=== PATIENT | female | born 1935 | race Caucasian/White ===

== ENCOUNTER 2025-01-14 18:04 | Observation (INO) | payer MEDICARE, OTHER ==
--- NOTE | 2025-01-14 18:51 | CT ---
EXAMINATION TYPE: CT brain cspine wo con DATE OF EXAM: 01/14/2025 6:27 PM COMPARISON: None. CLINICAL INDICATION: Female, 89 years old with history of Trauma; CODE COAG- fall from [address] airs, +thinners., pain TECHNIQUE: Brain: Multiple axial CT images of the brain were obtained without IV contrast. Cspine: Axial CT images from the skull base to the inferior aspect of T2 we obtained without intraven ous contrast. Coronal and sagittal reformatted images were also reviewed. . CT DLP: 1352.4 mGycm, Automated exposure control for dose reduction was used. FINDINGS: Brain: Extra-axial spaces: No abnormal extra-axial fluid collections. Ventricular system: Dilatation in proportion to cerebral atrophy. Cerebral parenchyma: Cerebral atrophy. No acute intraparenchymal hemorrhage or mass effect. The bar -white junction is well differentiated. Scattered hypoattenuating areas are seen within the white mat ter. Cerebellum: Unremarkable. Mass effect: No evidence of midline shift. Intracranial vasculature: Atherosclerotic calcifications of the intracranial vessels. Soft tissues: Normal. Calvarium/osseous structures: No depressed skull fracture. Paranasal sinuses and mastoid air cells: Mild scattered mucosal thickening and or secretions. Visualized orbits: Bilateral aphakia Cervical spine: Fracture: None. Osseous structures: Multilevel degenerative disc disease changes with endplate spurring and disc oste ophyte complex's. Vertebral alignment: Within normal limits. Spinal canal/Neural Foramina: Disc osteophyte complexes at C5-C6 with at least mild spinal canal sten osis. Facet joint uncovertebral joint arthropathy scattered throughout the cervical spine with varyin g degrees of neural foraminal stenosis. No frontal sinuses worse at C5-6 with moderate to severe Neck soft tissues: Prevertebral soft tissues are within normal limits. Other: The airway is patent. Surgical clips are present in the right neck and left shoulder. IMPRESSION: 1. No acute intracranial process. 2. Nonspecific white matter changes, likely secondary to chronic small vessel ischemic disease. 3. No evidence of cervical spine fracture. 4. Moderate to severe C5-C6 degenerative disc disease. [facility], , 01/14/2025 6:49 PM
--- NOTE | 2025-01-14 18:52 | ED ---
General Adult HPI - General Chief complaint: Fall Stated complaint: Fall Time Seen by Provider: 01/14/25 18:30 Source: patient, RN notes reviewed, old records reviewed Mode of arrival: EMS - History of Present Illness Initial comments: This is an 89-year-old female who presents to the emergency department complaining of having fallen down 7 steps. Patient states she is not on blood thinners. Patient states she did hit her head but she has no headache she has no neck pain she has no numbness weakness. Patient complains of right shoulder pain and left wrist pain. Patient denies any chest or back pain. Patient denies abdominal pain patient denies any other problems at this time. - Related Data Home Medications Medication Instructions Recorded Confirmed Melatonin 3 mg PO HS #0 06/23/14 07/28/14 Previous Rx's Medication Instructions Recorded Enoxaparin [Lovenox] 40 mg SQ DAILY #15 syringe 07/31/14 HYDROcodone/APAP 7.5-325MG [[place] 1 each PO Q4H PRN #30 tab 07/31/14 7.5] Omeprazole [PriLOSEC] 40 mg PO AC-BRKFST #1 cap 07/31/14 Allergies Allergy/AdvReac Type Severity Reaction Status Date / Time Penicillins Allergy Itching,nima Verified 01/14/25 18:38 h Review of Systems ROS Statement: Those systems with pertinent positive or pertinent negative responses have been documented in the HPI. ROS Other: All systems not noted in ROS Statement are negative. Past Medical History Past Medical History: Cancer, COPD, Hyperlipidemia, Osteoarthritis (OA) Additional Past Medical History / Comment(s): BREAST CANCER- Left breast tx with radiaton. 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 "overactive bladder" had UTI after appendectomy History of Any Multi-Drug Resistant Organisms: None Reported Past Surgical History: Appendectomy, Bowel Resection, Breast Surgery, Joint Replacement, Orthopedic Surgery, Tonsillectomy Additional Past Surgical History / Comment(s): LEFT BREAST LUMPECTOMY, LEFT FIFTH TOE AMPUTATION , DOUG CATARACTS. TOTAL RIGHT HIP Past Anesthesia/Blood Transfusion Reactions: No Reported Reaction Past Psychological History: No Psychological Hx Reported Smoking Status: Current every day smoker Past Alcohol Use History: Occasional Past Drug Use History: None Reported - Past Family History Mother Family Medical History: Cancer Additional Family Medical History / Comment(s): CERVICAL CANCER General Exam - General Exam Comments Initial Comments: GENERAL: Patient is well-developed and well-nourished. Patient is nontoxic and well-h ydrated and is in mild distress. ENT: Neck is soft and supple. No significant lymphadenopathy is noted. Oropharynx is clear. Moist mucous membranes. Neck has full range of motion without eliciting any pain. EYES: The sclera were anicteric and conjunctiva were pink and moist. Extraocular movements were intact and pupils were equal round and reactive to light. Eyelids were unremarkable. PULMONARY: Unlabored respirations. Good breath sounds bilaterally. No audible rales rhonchi or wheezing was noted. CARDIOVASCULAR: There is a regular rate and rhythm without any murmurs gallops or rubs. ABDOMEN: Soft and nontender with normal bowel sounds. No palpable organomegaly was noted. There is no palpable pulsatile mass. SKIN: Skin is clear with no lesions or rashes and otherwise unremarkable. NEUROLOGIC: Patient is alert and oriented x3. Cranial nerves II through XII are grossly intact. Motor and sensory are also intact. Normal speech, volume and content. Symmetrical smile. MUSCULOSKELETAL: Normal extremities with adequate strength and full range of motion. Patient has some right clavicular acromial joint pain. Patient also has pain in her left wrist LYMPHATICS: No significant lymphadenopathy is noted PSYCHIATRIC: Normal psychiatric evaluation. Course Vital Signs 01/14/25 01/14/25 01/14/25 18:30 18:46 19:28 Temperature 98.3 F Pulse Rate 86 86 Respiratory 18 18 Rate Blood Pressure 150/131 140/96 O2 Sat by Pulse 95 95 Oximetry Procedures - Orthopedic Splinting/Casting Injury #1 Side: left Upper Extremity Injury Location: short arm, wrist Upper Extremity Immobilizer: posterior splint Medical Decision Making - Medical Decision Making Was pt. sent in by a medical professional or institution (, PA, CAREER DEVELOPMENT ASSOCIATE, urgent care, hospital, or senior care...) When possible be specific @ -No Did you speak to anyone other than the patient for history (EMS, parent, family, police, friend...)? What history was obtained from this source @ -No Did you review nursing and triage notes (agree or disagree)? Why? @ -I reviewed and agree with nursing and triage notes Were old charts reviewed (outside hosp., previous admission, EMS record, old EKG, old radiological studies, urgent care reports/EKG's, senior care records)? Report findings @ -No old charts were reviewed Differential Diagnosis? @ -Differential Musculoskeletal Muscular strain, contusion, ligament sprain, fracture, arthritis, septic arthritis, bursitis, cellulitis, muscle spasm, nerve compression, DVT, arterial occlusion, herpes zoster, electrolyte abnormality, tumor.... This is not meant to be in all inclusive list Skull fracture, cervical spine fracture, intracranial hemorrhage, this is not an all-inclusive list EKG interpreted by me (3pts min.). @ -As above X-rays interpreted by me (1pt min.). @ -X-ray of the left wrist showed fracture of the distal radius with minimal displacement. X-ray of the right shoulder shows a distal right clavicle fracture with some displacement CT interpreted by me (1pt min.). @ -CT of the brain and C-spine showed no acute abnormality U/S interpreted by me (1pt. min.). @ -None done What testing was considered but not performed or refused? (CT, X-rays, U/S, labs)? Why? @ -None What meds were considered but not given or refused? Why? @ -None Did you discuss the management of the patient with other professionals (professionals i.e. , PA, CAREER DEVELOPMENT ASSOCIATE, lab, RT, psych nurse, social media coordinator, hearing dog trainer, teacher, customer service officer, transplant case manager)? Give summary @ -I spoke with Dr. Anderson he agreed to admit the patient I admitted the patient I wrote admitting orders. Dr. Dooley will be on consult Was smoking cessation discussed for >3mins.? @ -No Was critical care preformed (if so, how long)? @ -No Were there social determinants of health that impacted care today? How? (Homelessness, low income, unemployed, alcoholism, drug addiction, transportation, low edu. Level, literacy, decrease access to med. care, [facility], rehab)? @ -No Was there de-escalation of care discussed even if they declined (Discuss DNR or withdrawal of care, Hospice)? DNR status @ -No What co-morbidities impacted this encounter? (DM, HTN, Smoking, COPD, CAD, Cancer, CVA, ARF, Chemo, Hep., AIDS, mental health diagnosis, sleep apnea, morbid obesity)? @ -None Was patient admitted / discharged? Hospital course, mention meds given and route, prescriptions, significant lab abnormalities, going to OR and other pertinent info. @ -I placed a splint on the left wrist and placed the patient in a sling on the right arm. Patient was unsure if she could go home and care for self so she wanted to stay overnight and see orthopedics in discuss the options tomorrow. Undiagnosed new problem with uncertain prognosis? @ -No Drug Therapy requiring intensive monitoring for toxicity (Heparin, Nitro, Insulin, Cardizem)? @ -No Were any procedures done? @ -No Diagnosis/symptom? @ -Fall Acute, or Chronic, or Acute on Chronic? @ -Acute Uncomplicated (without systemic symptoms) or Complicated (systemic symptoms)? @ -Complicated Side effects of treatment? @ -No Exacerbation, Progression, or Severe Exacerbation? @ -No Poses a threat to life or bodily function? How? (Chest pain, [place], [place], pneumonia, PE, COPD, DKA, ARF, appy, cholecystitis, CVA, Diverticulitis, Homicidal, Suicidal, threat to staff... and all critical care pts) @ -No Diagnosis/symptom? @ -Radius fracture left Acute, or Chronic, or Acute on Chronic? @ -Acute Uncomplicated (without systemic symptoms) or Complicated (systemic symptoms)? @ -Uncomplicated Side effects of treatment? @ -None Exacerbation, Progression, or Severe Exacerbation] @ -No Poses a threat to life or bodily function? @ -No Diagnosis/symptom? @ -Clavicle fracture right Acute, or Chronic, or Acute on Chronic? @ -Acute Uncomplicated (without systemic symptoms) or Complicated (systemic symptoms)? @ -Uncomplicated Side effects of treatment? @ -None Exacerbation, Progression, or Severe Exacerbation] @ -No Poses a threat to life or bodily function? @ -No Disposition Clinical Impression: Fall, Left radial fracture, Right clavicle fracture Disposition: ADMITTED IP TO THIS HOSP Referrals: Dewayne Araya MD [STAFF PHYSICIAN] - 1-2 days Time of Disposition: 20:44
--- NOTE | 2025-01-14 18:56 | XR ---
EXAMINATION TYPE: XR chest 2V DATE OF EXAM: 01/14/2025 6:24 PM COMPARISON: Chest radiographs from 07/22/2014 CLINICAL INDICATION: Female, 89 years old with history of Difficulty breathing ; [facility] TECHNIQUE: XR chest 2V Frontal and lateral views of the chest. FINDINGS: Lungs/Pleura: There is no evidence of pleural effusion, focal consolidation, or pneumothorax. Pulmonary vascularity: Unremarkable. Heart/mediastinum: Cardiomediastinal silhouette is unremarkable. Musculoskeletal: No acute osseous pathology. Bilateral shoulder arthroplasty appear intact. Other findings: Surgical clips in the bilateral axilla and left lower neck. IMPRESSION: No acute cardiopulmonary disease/process. [facility], , 01/14/2025 6:53 PM
--- NOTE | 2025-01-14 18:58 | XR ---
EXAMINATION TYPE: XR wrist complete LT DATE OF EXAM: 01/14/2025 6:24 PM COMPARISON: None CLINICAL INDICATION: Female, 89 years old with history of Pain, trauma, pain TECHNIQUE: XR wrist complete LT; examined in the Frontal, navicular, lateral, and oblique. FINDINGS: Lucent line to the articular surface of the distal radius with suspected remote appearing d orsally angulated fracture. If no history of fracture this would all be acute fracture. Severe degene ration changes of first digit carpometacarpal joint with joint space narrowing and osteophyte formati on. IMPRESSION: Dorsal angulation of the distal radius possibly chronic with suspected Acute fracture line through th e articular surface. Correlate with CT for complete evaluation given acute on suspected chronic fract ure. [facility], , 01/14/2025 6:55 PM
--- NOTE | 2025-01-14 19:00 | XR ---
EXAMINATION TYPE: XR shoulder complete RT DATE OF EXAM: 01/14/2025 6:24 PM COMPARISON: Chest radiograph same day. CLINICAL INDICATION: Female, 89 years old with history of PAIN RT SHOULDER; PHH, pain TECHNIQUE: XR shoulder complete RT; examined in AP, internally rotated and scapular Y projections. FINDINGS: There is angulation of the distal clavicle present with fracture identified. Surgical clips are seen in the right axilla. Mild degeneration changes of the glenohumeral joint with joint space tearing ost eophyte formation. IMPRESSION: Minimally displaced right distal clavicle fracture. [facility], , 01/14/2025 6:58 PM
[2025-01-14] MEDS: SODIUM CHLORIDE 0.9% 1,000 ML IV ONE (22:21)
[2025-01-15] MEDS: ACETAMINOPHEN TAB 325 MG TAB PO PRN (01:15)
--- NOTE | 2025-01-15 09:07 | P.HPOR ---
History of Present Illness H&P Date: 01/15/25 Chief Complaint: Bilateral upper extremity injury. This is an 89-year-old female who presented to the emergency department yesterday after falling down some basement steps. She sustained injury to her left wrist and right shoulder. The patient typically lives on her own in her own home. She states that she manages quite well. She does have a son that checks on her daily. On exam and x-ray in the emergency department she is found to have a minimally displaced distal clavicle fracture on the right and a nondisplaced distal radius fracture on the left. She does have history of a prior distal radius fracture 20 years ago. She is admitted to our service for possible placement and PT/OT evaluations. The patient is requesting to be able to go home with home care. Past Medical History Past Medical History: Atrial Fibrillation, Cancer, COPD, Hyperlipidemia, Osteoarthritis (OA) Additional Past Medical History / Comment(s): BREAST CANCER- Left breast tx with radiaton. 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 "overactive bladder" had UTI after appendectomy, Parkinsons Disease, macular degeneration History of Any Multi-Drug Resistant Organisms: None Reported Past Surgical History: Appendectomy, Bowel Resection, Breast Surgery, Joint Replacement, Orthopedic Surgery, Tonsillectomy Additional Past Surgical History / Comment(s): LEFT BREAST LUMPECTOMY, LEFT FIFTH TOE AMPUTATION , DOUG CATARACTS. TOTAL RIGHT HIP , 8 melanomas removed and 9 lymph nodes removed Past Anesthesia/Blood Transfusion Reactions: No Reported Reaction Past Psychological History: No Psychological Hx Reported Smoking Status: Current every day smoker Past Alcohol Use History: Occasional Past Drug Use History: None Reported - Past Family History Mother Family Medical History: Cancer Additional Family Medical History / Comment(s): CERVICAL CANCER Medications and Allergies Home Medications Medication Instructions Recorded Confirmed Type Melatonin 3 mg PO HS #0 06/23/14 07/28/14 History Enoxaparin [Lovenox] 40 mg SQ DAILY #15 syringe 07/31/14 Rx HYDROcodone/APAP 7.5-325MG [[place] 1 each PO Q4H PRN #30 tab 07/31/14 Rx 7.5] Omeprazole [PriLOSEC] 40 mg PO AC-BRKFST #1 cap 07/31/14 Rx Allergies Allergy/AdvReac Type Severity Reaction Status Date / Time Penicillins Allergy Itching,nima Verified 01/14/25 18:38 h Physical Examination This is a pleasant 89-year-old female in no acute distress. She is alert and oriented x 3. Exam of the head neck revealed no obvious deformity. She has fu ll cervical spine motion with some tenderness in the right upper trapezial musculature with rotation to the right. There is mild tenderness at this area with palpation. She is nontender over the spinous processes. Exam of the right upper extremity reveals a sling in place. There is no swelling, erythema or ecchymosis to the shoulder or clavicular area. There is mild tenderness to palpation about the distal clavicle. She has full finger motion on the right without difficulty or pain. Exam of the left upper extremity reveals a splint in place. The splint is removed and evaluation of the wrist reveals no erythema or ecchymosis. There is minimal soft tissue swelling. There is minimal tenderness with palpation about the distal radius and ulna. She has full finger motion without difficulty or pain. Neurovascular status to the upper extremities is intact. Exam of the lower extremities reveals no obvious deformity. There is no shortening or rotational deformity. She is able to lift each leg off the bed independently. She has full foot and ankle motion without difficulty or pain. Neurovascular status to the lower extremities is intact. Results X-rays of the right shoulder reveal a minimally displaced distal clavicle fracture. No other bony abnormalities noted. X-rays of the left wrist reveal an old healed distal radius fracture with slight dorsal angulation and shortening of the distal radius. There is a subtle lucency about the articular surface of the distal radius which may represent a new nondisplaced fracture. CT of the head and neck reveal degenerative changes to the cervical spine with facet arthropathy and degenerative disc disease, most prominent at C5-6. No acute fractures noted. Assessment and Plan (1) Fall Current Visit: Yes Status: Acute Code(s): W19.XXXA - UNSPECIFIED FALL, INITIAL ENCOUNTER SNOMED Code(s): 7406432 (2) Left radial fracture Current Visit: Yes Status: Acute Code(s): S52.92XA - UNSP FRACTURE OF LEFT FOREARM, INIT FOR CLOS FX SNOMED Code(s): 21411840281640733 (3) Right clavicle fracture Current Visit: Yes Status: Acute Code(s): S42.001A - FRACTURE OF UNSP PART OF RIGHT CLAVICLE, INIT FOR CLOS FX SNOMED Code(s): 73272848 Plan: The clinical and x-ray findings are discussed with the patient and nursing staff. I have consulted physical therapy for evaluation as well as occupational therapy. I have ordered a cock up wrist brace for the left wrist. She will use a sling on the right upper extremity for comfort. She may perform gentle range of motion exercises of the elbow and wrist out of the sling. She may bear weight with a walker or cane on the left. The patient would like to be able to go home with home care if possible. We will see how she does with PT and OT and continue with discharge planning.
[2025-01-15] MEDS: METOPROLOL SUCCINATE (ER) 100 MG TAB.ER.24H PO SCH (10:55)
[2025-01-15] MEDS: APIXABAN 2.5 MG TABLET PO SCH (10:55)
[2025-01-15] MEDS: ENOXAPARIN 40 MG/0.4 ML SYRINGE SQ SCH (11:36)
[2025-01-15] MEDS: LEVOTHYROXINE 88 MCG TAB PO SCH (12:53)
[2025-01-15] MEDS: CARBIDOPA-LEVODOPA 25-100 MG 1 EACH TAB PO SCH (12:53)
--- NOTE | 2025-01-15 20:00 | P.CONS ---
History of Present Illness - Reason for Consult Consult date: 01/15/25 Medical manage Requesting physician: Sal Anderson - Chief Complaint Fall - History of Present Illness Very pleasant 89-year-old patient, follows with Dr. Macey Scott. Patient lives by herself. Does use a walker. Does smoke 3 to 4 cigarettes a day. She was visiting a friend standing at the top of the [place] and fell backwards. When she missed took a step. As a result patient has a left radial fracture and right clavicle fracture. Patient is hard of hearing. Sitting up in a recliner. Some pain is present. Review of systems: GEN.: None EYES: None HEENT: [Hard of hearing NECK: None RESPIRATORY: A bit baseline short of breath CARDIOVASCULAR: None GASTROINTESTINAL: Has a bowel movement every other day GENITOURINARY: Chronic urinary stress incontinence MUSCULOSKELETAL: Pain in the clavicle area, left wrist other joints LYMPHATICS: None HEMATOLOGICAL: [Does use a walker PSYCHIATRY: None NEUROLOGICAL: None Social history: Lives alone. Smoking for last 26 years. 3 to 4 cigarettes a day. Physical examination: VITAL SIGNS: 98.4, 65, 18, 146 x 92, 93% room air GENERAL: [BMI 24.8, sitting up in chair awake slightly anxious. EYES: Pupils equal. Conjunctiva randy l. HEENT: External appearance of nose and ears normal, oral cavity grossly normal. Hard of hearing NECK: JVD not raised; masses not palpable. HEART: First and second heart sounds are normal; no edema. LUNGS: Respiratory rate increased l; decreased breath sound. ABDOMEN: Soft, nontender, liver spleen not palpable, no masses palpable. PSYCH: Alert and oriented x3; mood and affect with anxious l. MUSCULOSKELETAL:No Clubbing/cyanosis;muscles-grossly intact. Severe OA in multiple joints. Right arm in a sling. NEUROLOGICAL: Cranial nerves grossly intact; no facial asymmetry, power and sensation grossly intact. LYMPHATICS: No lymph nodes palpable in the axilla and neck INVESTIGATIONS, reviewed in the clinical context: Will check labs Chest x-ray: Unremarkable Left wrist x-ray: Dorsal angulation of the distal radius possibly chronic with suspected acute fracture line through the articular surface. X-ray shoulder complete right: Minimally displaced right distal clavicle fracture Assessment plan: - Traumatic minimally displaced right distal clavicle fracture and possible left radial fracture secondary to accidental fall. Right arm in a sling. Brace has been ordered for the left wrist. Orthopedics following. For nonsurgical intervention - Very hard of hearing - Chronic gait dysfunction at baseline, uses a walker - Persistent atrial fibrillation Toprol-XL Eliquis. EKG. Telemetry. - Hypothyroid Synthroid 88 mcg a day - Chronic urine incontinence Wears depends - Primary osteoarthritis multiple joints, pain medication as needed - COPD. In a smoker. Albuterol as needed - Parkinson's Sinemet -No code. Per patient Thank you Dr. Anderson Past Medical History Past Medical History: Atrial Fibrillation, Cancer, COPD, Hyperlipidemia, Osteoarthritis (OA) Additional Past Medical History / Comment(s): BREAST CANCER- Left breast tx with radiaton. 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 "overactive bladder" had UTI after appendectomy, Parkinsons D isease, macular degeneration History of Any Multi-Drug Resistant Organisms: None Reported Past Surgical History: Appendectomy, Bowel Resection, Breast Surgery, Joint Replacement, Orthopedic Surgery, Tonsillectomy Additional Past Surgical History / Comment(s): LEFT BREAST LUMPECTOMY, LEFT FIFTH TOE AMPUTATION , DOUG CATARACTS. TOTAL RIGHT HIP , 8 melanomas removed and 9 lymph nodes removed Past Anesthesia/Blood Transfusion Reactions: No Reported Reaction Past Psychological History: No Psychological Hx Reported Smoking Status: Current every day smoker Past Alcohol Use History: Occasional Past Drug Use History: None Reported - Past Family History Mother Family Medical History: Cancer Additional Family Medical History / Comment(s): CERVICAL CANCER Medications and Allergies Home Medications Medication Instructions Recorded Confirmed Type Apixaban [Eliquis] 2.5 mg PO BID 01/15/25 01/15/25 History Carbidopa/Levodopa [Sinemet 25-100 1 tab PO QID 01/15/25 01/15/25 History mg] Ergocalciferol [Vitamin D2 (1250 1,250 mcg PO MO 01/15/25 01/15/25 History Mcg = 15680 Iu)] Levothyroxine Sodium [Synthroid] 88 mcg PO DAILY 01/15/25 01/15/25 History Metoprolol Succinate (ER) [Toprol 50 mg PO HS 01/15/25 01/15/25 History Xl] Metoprolol Succinate (ER) [Toprol 100 mg PO DAILY 01/15/25 01/15/25 History Xl] Allergies Allergy/AdvReac Type Severity Reaction Status Date / Time Penicillins Allergy Itching,nima Verified 01/15/25 09:53 h Physical Exam Vitals: Vital Signs Temp Pulse Pulse Resp BP BP Pulse Ox 01/15/25 07:02 98.4 F 65 18 146/92 93 L 01/15/25 03:51 97.5 F L 68 16 139/85 94 L 01/15/25 00:35 98.0 F 98 18 159/110 94 L 01/14/25 23:00 82 18 96 01/14/25 19:28 86 18 140/96 95 01/14/25 18:46 150/131 01/14/25 18:30 98.3 F 86 18 95 Intake and Output 01/14/25 01/15/25 01/15/25 22:59 06:59 14:59 Output Total 400 350 Balance -400 -350 Output: Urine 400 350 Other: Voiding Method External Catheter Weight 59.421 kg 59.421 kg
[2025-01-15] MEDS: METOPROLOL SUCCINATE (ER) 50 MG TAB.ER.24H PO SCH (21:02)
[2025-01-16 05:22] LABS: Basophils # (A) 0.04 10*3/uL (0.00-0.10); Basophils % (A) 0.6 %; Eosinophils # (A) 0.15 10*3/uL (0.04-0.35); Eosinophils % (A) 2.2 %; HCT 36.1 % (37.2-46.3); HGB 12.1 g/dL (12.0-15.0); Lymphocytes # (A) 2.12 10*3/uL (0.90-5.00); MCH 30.7 pg (27.0-32.0); MCHC 33.5 g/dL (32.0-37.0); MCV 91.6 fL (80.0-97.0); Mean Platelet Volume 9.2 fL (9.5-12.2); Monocytes # (A) 0.79 10*3/uL (0.20-1.00); Monocytes % (A) 11.5 %; Neutrophils # (A) 3.72 10*3/uL (1.80-7.70); Neutrophils % (A) 54.4 %; Platelet Count 269 10*3/uL (140-440); RBC 3.94 10*6/uL (4.10-5.20); WBC 6.84 10*3/uL (4.50-10.00)
[2025-01-16 05:37] LABS: ALT 8 U/L (4-34); AST 21 U/L (14-36); African American GFR (CKD) 73 (>60 ml/min/1.73 sqM); Albumin 3.5 g/dL (3.5-5.0); Albumin/Globulin Ratio 1.3; Alkaline Phosphatase 75 U/L (38-126); Anion Gap 6 mmol/L; Blood Urea Nitrogen 24 mg/dL (7-17); Carbon Dioxide 29 mmol/L (22-30); Chloride 100 mmol/L (98-107); Globulin 2.7 g/dL; Glucose 92 mg/dL (74-99); Non-African American GFR(CKD) 64 (>60 ml/min/1.73 sqM); Potassium 4.4 mmol/L (3.5-5.1); Sodium 135 mmol/L (137-145); Total Bilirubin 0.5 mg/dL (0.2-1.3); Total Protein 6.2 g/dL (6.3-8.2)
[2025-01-16 08:27] VITALS: BP 142/84; PULSE 88; RESP 22; TEMP 97.2
--- NOTE | 2025-01-16 09:05 | P.PN ---
Subjective Progress Note Date: 01/16/25 Principal diagnosis: Right distal clavicle fracture, left distal radius fracture. This is an 89-year-old female who presented to the emergency department on 01/14/2025 after falling down some basement steps. She sustained injury to her left wrist and right shoulder. The patient typically lives on her own in her own home. She states that she manages quite well. She does have a son that checks on her daily. On exam and x-ray in the emergency department she is found to have a minimally displaced distal clavicle fracture on the right and a nondisplaced distal radius fracture on the left. She does have history of a prior distal radius fracture 20 years ago. She is admitted to our service for possible placement and PT/OT evaluations. The patient is requesting to be able to go home with home care. 01/16/2025: The patient has no new complaints or concerns today. She has decided that inpatient rehab is probably the best plan for her. Objective - Vital Signs Vital signs: Vital Signs Temp 97.2 F L 01/16/25 08:21 Pulse 88 01/16/25 08:41 Resp 22 01/16/25 08:41 BP 142/84 01/16/25 08:21 Pulse Ox 94 L 01/16/25 08:21 FiO2 Intake & Output 01/15/25 01/16/25 01/16/25 18:59 06:59 18:59 Output Total 350 450 Balance -350 -450 Output: Urine 350 450 Other: Voiding Method External Catheter External Catheter # Voids 2 # Bowel Movements 1 0 - Exam This is a pleasant 89-year-old female in no acute distress. She is alert and oriented x 3. Exam of the left upper extremity reveals that her brace is int act. She has full finger motion without difficulty or pain. Exam of the right upper extremity reveals a sling in place. There is tenderness with palpation about the distal clavicle. Range of motion of the shoulder is not tested today. She has full finger motion bilaterally. Neurovascular status to the upper extremities is intact. - Labs CBC & Chem 7: 01/16/25 05:05 01/16/25 05:05 Labs: Abnormal Lab Results - Last 24 Hours (Table) 01/16/25 01/16/25 Range/Units 05:05 05:05 RBC 3.94 L (4.10-5.20) 10*6/uL Hct 36.1 L (37.2-46.3) % MPV 9.2 L (9.5-12.2) fL Sodium 135 L (137-145) mmol/L BUN 24 H (7-17) mg/dL Total Protein 6.2 L (6.3-8.2) g/dL Assessment and Plan (1) Fall Current Visit: Yes Status: Acute Code(s): W19.XXXA - UNSPECIFIED FALL, INITIAL ENCOUNTER SNOMED Code(s): 8580910 (2) Left radial fracture Current Visit: Yes Status: Acute Code(s): S52.92XA - UNSP FRACTURE OF LEFT FOREARM, INIT FOR CLOS FX SNOMED Code(s): 20887482322097468 (3) Right clavicle fracture Current Visit: Yes Status: Acute Code(s): S42.001A - FRACTURE OF UNSP PART OF RIGHT CLAVICLE, INIT FOR CLOS FX SNOMED Code(s): 04656964 Plan: The clinical and x-ray findings are discussed with the patient and nursing staff. She has been evaluated by PT and OT. Inpatient rehab is the official recommendation. The patient is electing to go to rehab. We will hopefully get her discharged today.
--- NOTE | 2025-01-16 09:12 | P.DS ---
Providers Date of admission: 01/14/25 20:45 Expected date of discharge: 01/16/25 Attending physician: Sal Anderson Consults: 01/14/25 20:44 Consult Physician Urgent Consulting Provider: Lukas Dooley Consult Reason/Comments: Medical management Do you want consulting provider notified?: Yes Primary care physician: Macey Oliveirael - Discharge Diagnosis(es) (1) Fall Current Visit: Yes Status: Acute (2) Left radial fracture Current Visit: Yes Status: Acute (3) Right clavicle fracture Current Visit: Yes Status: Acute Hospital Course: This is an 89-year-old female who presented to the emergency department on 01/13/2025 after falling down some basement steps. She sustained injury to her left wrist and right shoulder. The patient typically lives on her own in her own home. She states that she manages quite well. She does have a son that checks on her daily. On exam and x-ray in the emergency department she is found to have a minimally displaced distal clavicle fracture on the right and a nondisplaced distal radius fracture on the left. She does have history of a prior distal radius fracture 20 years ago. She had evaluation with physical therapy and Occupational Therapy. It was recommended that she be transferred to inpatient rehab. The patient is discharged to inpatient rehab on 01/16/2025 in stable condition. She may bear weight to the left upper extremity with the brace on. She will continue with the sling for the right arm. She may come out of the sling for gentle range of motion exercises of the shoulder. Patient Condition at Discharge: Stable Plan - Discharge Summary Discharge Rx Participant: No New Discharge Prescriptions: New Acetaminophen [Acetaminophen 8 hr] 650 mg PO Q8H PRN #28 tab PRN Reason: Pain No Action Metoprolol Succinate (ER) [Toprol Xl] 50 mg PO HS Levothyroxine Sodium [Synthroid] 88 mcg PO DAILY Ergocalciferol [Vitamin D2 (1250 Mcg = 15868 Iu)] 1,250 mcg PO MO Metoprolol Succinate (ER) [Toprol Xl] 100 mg PO DAILY Carbidopa/Levodopa [Sinemet 25-100 mg] 1 tab PO QID Apixaban [Eliquis] 2.5 mg PO BID Discharge Medication List Apixaban [Eliquis] 2.5 mg PO BID 01/15/25 [History] Carbidopa/Levodopa [Sinemet 25-100 mg] 1 tab PO QID 01/15/25 [History] Ergocalciferol [Vitamin D2 (1250 Mcg = 36925 Iu)] 1,250 mcg PO MO 01/15/25 [History] Levothyroxine Sodium [Synthroid] 88 mcg PO DAILY 01/15/25 [History] Metoprolol Succinate (ER) [Toprol Xl] 50 mg PO HS 01/15/25 [History] Metoprolol Succinate (ER) [Toprol Xl] 100 mg PO DAILY 01/15/25 [History] Acetaminophen [Acetaminophen 8 hr] 650 mg PO Q8H PRN #28 tab 01/16/25 [Rx] Follow up Appointment(s)/Referral(s): Dewayne Araya MD [STAFF PHYSICIAN] - 1-2 days Sal Anderson MD [STAFF PHYSICIAN] - 2 Weeks Activity/Diet/Wound Care/Special Instructions: Sling right arm. May remove sling for gentle pendulum exercises and bathing. May bear weight to the left upper extremity for use of a walker with her brace in place. Discharge Disposition: TRANSFER TO SNF/ECF
--- NOTE | 2025-01-16 12:48 | P.PN ---
Progress Note - Text Progress Note Date: 01/16/25 - Chief Complaint Fall - History of Present Illness Very pleasant 89-year-old patient, follows with Dr. Macey Scott. Patient lives by herself. Does use a walker. Does smoke 3 to 4 cigarettes a day. She was visiting a friend standing [place] the [place] and fell backwards. When she missed took a step. As a result patient has a left radial fracture and right clavicle fracture. Patient is hard of hearing. Sitting up in a recliner. Some pain is present. January 16: Up in a recliner. Pain reasonably controlled. Right arm in a sling. Left wrist brace. Being [place] [facility] [place] Eating 75% of her meals. Discussed. Active Medications Acetaminophen (Acetaminophen Tab 325 Mg Tab) 650 mg PO Q4HR PRN PRN Reason: Fever and/ or Pain Last Admin: 01/16/25 08:59 Dose: 650 mg Apixaban (Apixaban 2.5 Mg Tablet) 2.5 mg PO BID [facility]; Protocol Last Admin: 01/16/25 08:58 Dose: 2.5 mg Carbidopa/Levodopa (Carbidopa-Levodopa 25-100 Mg 1 Each Tab) 1 each PO QID [facility] Last Admin: 01/16/25 08:59 Dose: 1 each Ergocalciferol (Ergocalciferol 1,250 Mcg (50,000 Iu) Capsule) 1,250 mcg PO MO [facility] Levothyroxine Sodium (Levothyroxine 88 Mcg Tab) 88 mcg PO 0630 [facility] Last Admin: 01/16/25 06:40 Dose: 88 mcg Metoprolol Succinate (Metoprolol Succinate (Er) 50 Mg Tab.Er.24h) 50 mg PO HS [facility] Last Admin: 01/15/25 21:02 Dose: 50 mg Metoprolol Succinate (Metoprolol Succinate (Er) 100 Mg Tab.Er.24h) 100 mg PO DAILY [facility] Last Admin: 01/16/25 08:59 Dose: 100 mg Social history: Lives alone. Smoking for last 26 years. 3 to 4 cigarettes a day. Physical examination: VITAL SIGNS: 97.2, 88, 22, 142/84, 94% room air GENERAL: [BMI 24.8, sitting up in chair awake comfortable EYES: Pupils equal. Conjunctiva randy l. HEENT: External appearance of nose and ears normal, oral cavity grossly normal. Hard of hearing NECK: JVD not raised; masses not palpable. HEART: First and second heart sounds are normal; no edema. LUNGS: Respiratory rate increased l; decreased breath sound. ABDOMEN: Soft, nontender, liver spleen not palpable, no masses palpable. PSYCH: Alert and oriented x3; mood and affect with anxious l. MUSCULOSKELETAL:No Clubbing/cyanosis;muscles-grossly intact. Severe OA in multiple joints. Right arm in a sling. Left wrist in a brace NEUROLOGICAL: Cranial nerves grossly intact; no facial asymmetry, power and sensation grossly intact. Slight tremor INVESTIGATIONS, reviewed in the clinical context: January 16: White count 6.8 hemoglobin 12.1 platelets 269 potassium 4.4 creatinine 0.83 Chest x-ray: Unremarkable Left wrist x-ray: Dorsal angulation of the distal radius possibly chronic with suspected acute fracture line through the articular surface. X-ray shoulder complete right: Minimally displaced right distal clavicle fracture Assessment plan: - Traumatic minimally displaced right distal clavicle fracture and possible left radial fracture secondary to accidental fall. Right arm in a sling. Brace-the left wrist. Orthopedics following. For nonsurgical intervention - Very hard of hearing - Chronic gait dysfunction at baseline, uses a walker - Persistent atrial fibrillation Toprol-XL Eliquis. EKG. Telemetry. - Hypothyroid Synthroid 88 mcg a day - Chronic urine incontinence Wears depends - Primary osteoarthritis multiple joints, pain medication as needed - COPD. In a smoker. Albuterol as needed - Parkinson's Sinemet -No code. Per patient Discussed with patient. Going to [facility] for rehab. Thank you Dr. Anderson Past Medical History Past Medical History: Atrial Fibrillation, Cancer, COPD, Hyperlipidemia, Osteoarthritis (OA) Additional Past Medical History / Comment(s): BREAST CANCER- Left breast tx with radiaton. 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 "overactive bladder" had UTI after appendectomy, Parkinsons Disease, macular degeneration History of Any Multi-Drug Resistant Organisms: None Reported Past Surgical History: Appendectomy, Bowel Resection, Breast Surgery, Joint Replacement, Orthopedic Surgery, Tonsillectomy Additional Past Surgical History / Comment(s): LEFT BREAST LUMPECTOMY, LEFT FIF TH TOE AMPUTATION , DOUG CATARACTS. TOTAL RIGHT HIP , 8 melanomas removed and 9 lymph nodes removed Past Anesthesia/Blood Transfusion Reactions: No Reported Reaction Past Psychological History: No Psychological Hx Reported Smoking Status: Current every day smoker Past Alcohol Use History: Occasional Past Drug Use History: None Reported
[2025-01-19] MEDS ORDERED: ERGOCALCIFEROL 1,250 MCG (50,000 IU) CAPSULE PO SCH (09:00)
== END 2025-01-16 14:04 ==
LOC: EC 18:04 → 6NMEDSUR 20:45
PROVIDERS: ADMIT Orthopaedic Surgery; ATTEND Orthopaedic Surgery
DX: S52.502A Unspecified fracture of the lower end of left radius, initial encounter for closed fracture (principal); S42.031A Displaced fracture of lateral end of right clavicle, initial encounter for closed fracture; W10.8XXA Fall (on) (from) other stairs and steps, initial encounter; J44.9 Chronic obstructive pulmonary disease, unspecified; E78.5 Hyperlipidemia, unspecified; H91.90 Unspecified hearing loss, unspecified ear; I48.19 Other persistent atrial fibrillation; R26.9 Unspecified abnormalities of gait and mobility; E03.9 Hypothyroidism, unspecified; R32 Unspecified urinary incontinence; M15.9 Polyosteoarthritis, unspecified; G20.A1 Parkinson's disease without dyskinesia, without mention of fluctuations; F17.210 Nicotine dependence, cigarettes, uncomplicated; Z85.3 Personal history of malignant neoplasm of breast; Z85.820 Personal history of malignant melanoma of skin; Z92.3 Personal history of irradiation; Z79.01 Long term (current) use of anticoagulants; Z79.890 Hormone replacement therapy; Z79.899 Other long term (current) drug therapy; Z88.0 Allergy status to penicillin
CPT/HCPCS: 99285; 97161; 97166; 80053; 85025; 73030; 73110; 71046; 72125; 70450; G0378 ×3